=== PATIENT | female | born 1960 | race Caucasian/White ===

== ENCOUNTER 2020-06-27 08:17 | Outpatient (CLI) | payer OTHER | END 2020-06-27 08:33 | disposition home or self-care (01) | LOC: RX STUDY 08:17 | DX: R16.0 Hepatomegaly, not elsewhere classified (principal); E04.1 Nontoxic single thyroid nodule; R13.14 Dysphagia, pharyngoesophageal phase; K30 Functional dyspepsia; R11.2 Nausea with vomiting, unspecified ==

== ENCOUNTER 2020-10-03 07:48 | Outpatient (CLI) | payer OTHER | END 2020-10-03 07:50 | disposition home or self-care (01) | LOC: NUCLEAR 07:48 | DX: R10.13 Epigastric pain (principal); R11.2 Nausea with vomiting, unspecified | CPT/HCPCS: 78226; A9537 ==

== ENCOUNTER 2020-12-23 12:56 | Outpatient (CLI) | payer OTHER | END 2020-12-23 13:00 | disposition home or self-care (01) | LOC: NUCLEAR 12:56 | PROVIDERS: ATTEND Internal Medicine Cardiovascular Disease | DX: I11.9 Hypertensive heart disease without heart failure (principal); I20.9 Angina pectoris, unspecified; R00.2 Palpitations; R06.09 Other forms of dyspnea; M81.0 Age-related osteoporosis without current pathological fracture ==